=== PATIENT | female | born 1950 | race Caucasian/White ===

== ENCOUNTER → 2017-11-19 | Outpatient (REF) ==
[~2017-11-19] MED LIST: COLACE 100100 MG/CAP PO; MIRALAX238G PO; MOTRIN 400400 MG/TAB PO; MVI; SINEMET 25/101 UDTAB PO; TYLENOL 325MG325 MG PO; VITAMIN E200 I1 PO; VITAMIND3 5000 PO; ZOFRAN 4MG T4 MG/TAB PO
[2017-11-19 16:25] LABS: BASO % 0.3 % (0.0-2.0); EOS # 0.1 (0.0-0.7); EOS % 0.5 % (0-4.0); GRAN # 11.6 (1.4-6.5); GRAN % 84.4 % (42.2-75.2); HEMATOCRIT 37.9 % (37.0-47.0); HEMOGLOBIN 12.4 g/dl (12.5-16.0); LYMPH # 1.2 (1.2-3.4); LYMPH % 8.5 % (20.0-51.0); MEAN CELL VOLUME 88 fl (80.0-100.0); MEAN CORPUSCULAR HEMOGLOBIN 29 pg (27.0-31.0); MEAN CORPUSCULAR HGB CONC 33 g/dl (33.0-37.0); MEAN PLATELET VOLUME 11.6 fl (7.4-10.4); MONO # 0.8 (0.1-0.6); MONO % 5.9 % (1.7-9.3); PLATELET COUNT 237 K/mm3 (130-400); REDCELL DISTRIBUTION WIDTH-CV 14.2 % (11.5-14.5)
[2017-11-19 16:37] LABS: ALANINE AMINOTRANSFERASE 40 U/L (9-52); ALBUMIN 3.4 gm/dL (3.5-5.0); ALKALINE PHOSPHATASE 97 U/L (50-136); ANION GAP 8 mmol/L (7-16); AST,SGOT 42 U/L (15-37); BILIRUBIN,TOTAL 0.3 mg/dL (0.0-1.0); BLOOD UREA NITROGEN 9 mg/dL (7-17); CALCIUM 8.7 mg/dL (8.4-10.2); CARBON DIOXIDE 28 mmol/L (22-30); CHLORIDE 98 mmol/L (98-107); CREATININE, serum 0.59 mg/dL (0.52-1.25); GLUCOSE 114 mg/dL (74-106); POTASSIUM 3.3 mmol/L (3.4-5.0); SODIUM 134 mmol/L (137-145); TOTAL PROTEIN 6.6 gm/dL (6.4-8.2)
[2017-11-19 16:58] LABS: TROPONIN-I < 0.012 ng/mL (0.000-0.034)
== END ==
LOC: ZCOL.LAB 16:15
PROVIDERS: Internal Medicine
DX: K80.42 Calculus of bile duct with acute cholecystitis without obstruction (principal); R11.0 Nausea; R07.9 Chest pain, unspecified

== ENCOUNTER → 2017-11-21 | Outpatient (REF) | LOC: ZCOL.LAB 06:14 | DX: Z01.89 Encounter for other specified special examinations (principal) ==

== ENCOUNTER → 2018-04-10 | Outpatient (CLI) | payer MEDICARE, BC | LOC: MC.RAD 13:24 | DX: Z12.31 Encounter for screening mammogram for malignant neoplasm of breast (principal); Z13.820 Encounter for screening for osteoporosis ==

== ENCOUNTER → 2019-09-05 | Outpatient (CLI) | payer MEDICARE, BC | LOC: MC.RAD 07-26 11:45 | DX: Z12.31 Encounter for screening mammogram for malignant neoplasm of breast (principal) ==

== ENCOUNTER 2020-03-07 13:13 | Observation (INO) | payer MEDICARE, BC ==
[~2020-03-07] VITALS: Ht 170.2 cm; Wt 75.0 kg
[2020-03-07 15:24] LABS: HEMATOCRIT 39.5 % (37.0-47.0); HEMOGLOBIN 12.7 g/dl (12.5-16.0); MEAN CELL VOLUME 93 fl (80.0-100.0); MEAN CORPUSCULAR HEMOGLOBIN 30 pg (27.0-31.0); MEAN CORPUSCULAR HGB CONC 32 g/dl (33.0-37.0); MEAN PLATELET VOLUME 10.9 fl (7.4-10.4); PLATELET COUNT 221 K/mm3 (130-400); RED BLOOD COUNT 4.27 M/mm3 (4.10-5.30); REDCELL DISTRIBUTION WIDTH-CV 13.2 % (11.5-14.5)
[2020-03-07 15:38] LABS: ALKALINE PHOSPHATASE 72 U/L (50-136); ANION GAP 8 mmol/L (7-16); AST,SGOT 17 U/L (15-37); BILIRUBIN,TOTAL 0.3 mg/dL (0.0-1.0); BLOOD UREA NITROGEN 16 mg/dL (7-17); CALCIUM 8.2 mg/dL (8.4-10.2); CARBON DIOXIDE 25 mmol/L (22-30); CHLORIDE 107 mmol/L (98-107); CREATININE, serum 0.58 (0.52-1.25); GLUCOSE 120 mg/dL (74-106); POTASSIUM 3.9 mmol/L (3.4-5.0); SODIUM 139 mmol/L (137-145)
[2020-03-07 15:43] LABS: ALANINE AMINOTRANSFERASE < 4 U/L (4-34); C-REACTIVE PROTEIN < 0.5 mg/dL (0.0-0.9)
[2020-03-07 15:48] LABS: TROPONIN-I < 0.012 ng/mL (0.000-0.035)
[2020-03-07 16:18] LABS: COLLECTION METHOD CLEAN CATCH
[2020-03-07 16:37] LABS: MUCOUS Present /lpf; PH 5 (5-8); SQUAMOUS EPITHELIAL None Seen /hpf; URINE APPEARANCE Clear; URINE BACTERIA Rare /hpf; URINE BILIRUBIN Negative (NEGATIVE); URINE BLOOD Negative (NEGATIVE); URINE COLOR Yellow; URINE GLUCOSE Negative (NEGATIVE); URINE KETONE 2+ (NEGATIVE); URINE LEUKOCYTE ESTERASE Negative (NEGATIVE); URINE NITRATE Negative (NEGATIVE); URINE PROTEIN(semi-quant) Negative (NEGATIVE); URINE RBC 20-50 /hpf; URINE UROBILINOGEN Negative (NEGATIVE)
[2020-03-07 17:03] LABS: BAND 1 % (0-10); LYMPHOCYTE 6 % (20.0-51.0); NEUTROPHILS 93 % (42.0-75.2)
[2020-03-07 17:07] LABS: PLATELET ESTIMATE NORMAL (NORMAL)
[2020-03-07 18:20] VITALS: BP 133/68; PULSE 78; TEMP 98.8
[2020-03-07 19:38] VITALS: BP 126/63; PULSE 73; TEMP 98.2
--- NOTE | 2020-03-07 22:30 | NUR ---
Pt assessment completed, alert, oriented, roomair. Meds provided as per MAR, tolerated well. Pt complained of bed and matters not so comfortable, helped her settled down with multiple pillows. Call light on reach, no further need at this time.
[2020-03-07 23:00] VITALS: BP 121/63; PULSE 77; TEMP 98.3
[2020-03-08] VITALS (7 sets, daily range): BP systolic 126–149; BP diastolic 62–76; PULSE 68–81; TEMP 98.2–99.2
--- NOTE | 2020-03-08 07:41 | NUR ---
Pt had an uneventful night, slept on and off through out the night. Morning meds provided tolerated well. Handover provided to the day nurse.
--- NOTE | 2020-03-08 07:58 | NUR ---
BEDSIDE REPORT GIVEN. pt aox4. IV started by MATERIALS RECYCLER to LT FA. cipro infusing at this time thus flagyl late. pt with IV issues per operations supervisor 2nd shift
--- NOTE | 2020-03-08 11:01 | NUR ---
PT ROUNDED ON WITH DR MICHAEL. ORDER TO ADJUST SINEMET DOSE TO HOME DOSE OF 1.5 TABS X3 AND 1 TABX2 IN A DAY.
--- NOTE | 2020-03-08 14:48 | NUR ---
SW met with patient at her bedside. patient reports that she lives in [facility] by herself, with Shahriar Monroy (Bob) [phone] as care support and EMR. Patient also wished Lanre Ortiz as an EMR [phone]. Patient gave this SW a copy of point of contacts, and DPOa. SW made copies, and put a copy in patients file. Patient reports that she uses a walker with wheels, and that she is independent with ADL's. Patient reports that her PCP is Dr. Lainez with no upcoming appointments. PAtient reports that her medicatiosn coem from [facility], usually by mail, but she does have friends who will pick them up if needed. Patient did ask for assistance with locating an agency to provide meals occassionally. Patient reports that she was getting it from [employer] but she did not like the meals.
--- NOTE | 2020-03-08 20:30 | NUR ---
Initial shift assessment done- denies pain- states abd "tight", Up to bathroom with walker-steady on feet,no stools,voiding clear yellow urine. IV fluids of NS at 125cc/hr- getting IV flagyl and Cipro as ordered. On Contact /Droplet Isolation .
[2020-03-09 03:33] VITALS: BP 152/79; PULSE 71; TEMP 98.9
--- NOTE | 2020-03-09 04:48 | NUR ---
Has not slept much tonight- Up to bathroom every hour or so to void , IV fluids remain at 125cc/hr. Was given Tylenol x1 for slight right sided abd pain - No N/V,no stool tonight
[2020-03-09 07:07] LABS: BASO # 0.1 (0.0-0.2); BASO % 0.7 % (0.0-2.0); EOS # 0.1 (0.0-0.7); EOS % 1.8 % (0-4.0); GRAN # 4.1 (1.4-6.5); GRAN % 60.3 % (42.2-75.2); HEMOGLOBIN 10.8 g/dl (12.5-16.0); MEAN CELL VOLUME 92 fl (80.0-100.0); MEAN CORPUSCULAR HEMOGLOBIN 30 pg (27.0-31.0); MEAN CORPUSCULAR HGB CONC 32 g/dl (33.0-37.0); MEAN PLATELET VOLUME 11.8 fl (7.4-10.4); MONO # 0.6 (0.1-0.6); MONO % 8.1 % (1.7-9.3); PLATELET COUNT 212 K/mm3 (130-400); RED BLOOD COUNT 3.66 M/mm3 (4.10-5.30); REDCELL DISTRIBUTION WIDTH-CV 13.2 % (11.5-14.5)
[2020-03-09 07:15] LABS: HEMATOCRIT 33.7 % (37.0-47.0)
[2020-03-09 07:30] LABS: CALCIUM 8.5 mg/dL (8.4-10.2); CREATININE, serum 0.64 (0.52-1.25); POTASSIUM 3.5 mmol/L (3.4-5.0)
--- NOTE | 2020-03-09 07:38 | NUR ---
BEDSIDE SHIFT REPORT DONE. PT REPORTS MILD ABD PAIN. PASSING GAS BUT NO BM SINCE ADMIT. AMBULATED TO BATHROOM 1 ASSIST. VSS. REPORTS NOT MUCH SLEEP LAST NIGHT AND SOME ANXIETY ABOUT BEING A PUI. IVF IMFUSING WITH NO CONCERNS
[2020-03-09 07:42] VITALS: BP 149/75; PULSE 70; TEMP 98.6
[2020-03-09 08:00] VITALS: BP 139/64; PULSE 86; TEMP 98
[2020-03-09] MEDS ORDERED: FLAGYL500 MG PO (10:40)
[2020-03-09] MEDS ORDERED: CIPRO 500MG TA500 MG PO (10:40)
[2020-03-09] MEDS ORDERED: ZOFRAN ODT4 MG PO (10:41)
[2020-03-09 12:00] VITALS: BP 134/70; PULSE 70; TEMP 98.4
--- NOTE | 2020-03-09 14:06 | NUR ---
pt discharged to home @ 1400. picked up by friend. all questions answered. paperwork given to pt. IV dc'd no issues. denies pain on discharge. steady independent ambulation without walker on dc.
== END 2020-03-09 14:00 | disposition home or self-care (01) ==
LOC: COL.ER 13:13 → MEDICAL 16:52
PROVIDERS: Emergency Medicine; ADMIT Internal Medicine Pulmonary Disease
DX: K52.9 Noninfective gastroenteritis and colitis, unspecified (principal); G20 Parkinson's disease; Z20.828 Contact with and (suspected) exposure to other viral communicable diseases; Z88.2 Allergy status to sulfonamides; Z88.8 Allergy status to other drugs, medicaments and biological substances
CPT/HCPCS: G0378; J0744; J1650; J2405; J7030; Q9967

== ENCOUNTER 2020-10-27 23:46 | Inpatient (IN) | payer MEDICARE, BC ==
[~2020-10-27] VITALS: Ht 170.2 cm; Wt 68.2 kg
[~2020-10-27 23:46] MED LIST changes: +CIPRO 500MG TA500 MG PO; +FLAGYL500 MG PO; +ZOFRAN ODT4 MG PO
[2020-10-28 00:16] LABS: BASO # 0.1 (0.0-0.2); BASO % 0.4 % (0.0-2.0); EOS # 0.8 (0.0-0.7); EOS % 4.4 % (0-4.0); GRAN # 13.3 (1.4-6.5); GRAN % 76.7 % (42.2-75.2); HEMATOCRIT 32.4 % (37.0-47.0); HEMOGLOBIN 10.1 g/dl (12.5-16.0); LYMPH # 1.9 (1.2-3.4); LYMPH % 11.1 % (20.0-51.0); MEAN CELL VOLUME 93 fl (80.0-100.0); MEAN CORPUSCULAR HEMOGLOBIN 29 pg (27.0-31.0); MEAN CORPUSCULAR HGB CONC 31 g/dl (33.0-37.0); MEAN PLATELET VOLUME 9.6 fl (7.4-10.4); MONO # 1.1 (0.1-0.6); MONO % 6.5 % (1.7-9.3); PLATELET COUNT 491 K/mm3 (130-400); RED BLOOD COUNT 3.49 M/mm3 (4.10-5.30); REDCELL DISTRIBUTION WIDTH-CV 13.9 % (11.5-14.5)
[2020-10-28 00:21] LABS: INR 1.1 (0.8-3.0); PROTHROMBIN TIME 12.5 SECONDS (9.7-12.8)
[2020-10-28 00:29] LABS: ALANINE AMINOTRANSFERASE 6 U/L (4-34); ALBUMIN 3.3 gm/dL (3.5-5.0); ALKALINE PHOSPHATASE 156 U/L (50-136); ANION GAP 8 mmol/L (7-16); AST,SGOT 39 U/L (15-37); BILIRUBIN,TOTAL 0.1 mg/dL (0.0-1.0); BLOOD UREA NITROGEN 26 mg/dL (7-17); C-REACTIVE PROTEIN 6.8 mg/dL (0.0-0.9); CALCIUM 8.7 mg/dL (8.4-10.2); CARBON DIOXIDE 27 mmol/L (22-30); CHLORIDE 102 mmol/L (98-107); CREATININE, serum 1.04 (0.52-1.25); GLUCOSE 117 mg/dL (74-106); POTASSIUM 4.5 mmol/L (3.4-5.0); SODIUM 137 mmol/L (137-145); TOTAL PROTEIN 7.1 gm/dL (6.4-8.2)
[2020-10-28 00:38] LABS: TROPONIN-I < 0.012 ng/mL (0.000-0.035)
[2020-10-28 01:02] LABS: COLLECTION METHOD CLEAN CATCH
[2020-10-28 01:07] LABS: PH 7 (5-8); SQUAMOUS EPITHELIAL None Seen /hpf; URINE APPEARANCE Clear; URINE BACTERIA None Seen /hpf; URINE BILIRUBIN Negative (NEGATIVE); URINE BLOOD Negative (NEGATIVE); URINE COLOR Straw; URINE GLUCOSE Negative (NEGATIVE); URINE KETONE Negative (NEGATIVE); URINE LEUKOCYTE ESTERASE Negative (NEGATIVE); URINE NITRATE Negative (NEGATIVE); URINE PROTEIN(semi-quant) Negative (NEGATIVE); URINE RBC 0-2 /hpf; URINE UROBILINOGEN Negative (NEGATIVE)
[2020-10-28] MEDS ORDERED: TYLENOL 500MG500 MG PO (02:58)
[2020-10-28] MEDS ORDERED: SINEMET 25/101 UDTAB PO (05:01)
[2020-10-28] MEDS ORDERED: VITAMIND3 5000 PO (05:04)
--- NOTE | 2020-10-28 06:12 | NUR ---
Received patient from ED at 0445H. Patient is alert and oriented. She states she feels very weak and usually can go to the bathroom but right now she prefers to be in a diaper whenever she needs to void and have BM. With IV on left wrist started with NS at 60ml/hr. She is on room air. No tele. Call light within reach.
--- NOTE | 2020-10-28 07:00 | NUR ---
Report with CRISTEL Reveles. Pt resting in bed, awake and alert, asking about plug-ins and her chargers which we assist with. IVF's infusing without s/s of complications. Call light in reach. Bed alarm on.
[2020-10-28 07:20] LABS: BASO # 0.1 (0.0-0.2); BASO % 0.4 % (0.0-2.0); EOS # 0.5 (0.0-0.7); EOS % 3.3 % (0-4.0); GRAN # 13.1 (1.4-6.5); GRAN % 79.1 % (42.2-75.2); HEMOGLOBIN 10.3 g/dl (12.5-16.0); LYMPH # 1.8 (1.2-3.4); MEAN CELL VOLUME 91 fl (80.0-100.0); MEAN CORPUSCULAR HEMOGLOBIN 29 pg (27.0-31.0); MEAN CORPUSCULAR HGB CONC 32 g/dl (33.0-37.0); MEAN PLATELET VOLUME 10.1 fl (7.4-10.4); MONO # 0.9 (0.1-0.6); MONO % 5.7 % (1.7-9.3); PLATELET COUNT 498 K/mm3 (130-400); RED BLOOD COUNT 3.55 M/mm3 (4.10-5.30); REDCELL DISTRIBUTION WIDTH-CV 13.8 % (11.5-14.5)
[2020-10-28 07:26] LABS: HEMATOCRIT 32.3 % (37.0-47.0)
[2020-10-28 07:27] LABS: CALCIUM 8.5 mg/dL (8.4-10.2); CREATININE, serum 1.09 (0.52-1.25); POTASSIUM 4.2 mmol/L (3.4-5.0)
[2020-10-28 08:09] VITALS: BP 144/72; PULSE 91; TEMP 98.9
[2020-10-28 11:27] VITALS: BP 122/56; PULSE 79; TEMP 98.6
--- NOTE | 2020-10-28 13:17 | NUR ---
First visit from the epitaxial reactor operator. No needs right now.
--- NOTE | 2020-10-28 14:00 | NUR ---
Purewick remains in place per pt's preference d/t urinary urgency and weakness. No further needs reported. Call light in reach.
--- NOTE | 2020-10-28 15:25 | NUR ---
SW met with the patient to discuss discharge plan. The patient lives alone in [place]. She states that her mother lives at [facility]. She reports needing more assistance with ADLs lately and has a rolaider. The patient's PCP is Dr. Duong Mauro and she receives her medications by delivery from [facility]. She reports no difficulties obtaining her meds. The patient provided SW with a copy of her DPOA-HC. SW placed the document in the patient's chart. The patient's DPOA-HC is a fresh foods cake decorator, Shahriar Wong (ph#[phone], c.ph#[phone]), and the alternate is another fresh foods cake decorator, Lanre Ortiz (ph#[phone]). PT recommends SNF. SW discussed this with the patient. The patient reports that she has already been in contact with [facility] and would like to go there for rehab. She states that she has also been talking to them about transitioning to their long-term care after rehab. The patient does not have a second preference at this time. NEISHA contacted and faxed a referral to Lexie at [facility]. Awaiting screen. SW attempted to contact the patient's DPOA-HC, Shahriar. SW left him a voicemail. Discharge plan: Awaiting acceptance at [facility] SNF, will need a COVID test*
--- NOTE | 2020-10-28 16:21 | NUR ---
Plant Safety Engineer spoke with Lexie at [facility] who advised they can accept referral. Discharge Plan: [facility]
[2020-10-28 16:32] VITALS: BP 124/62; PULSE 83; TEMP 98.4
--- NOTE | 2020-10-28 18:42 | NUR ---
Report with CRISTEL Reveles. Pt resting in bed after eating, denies needs. Call light in reach.
--- NOTE | 2020-10-28 18:50 | NUR ---
Received report from Cristal. Patient awake in bed. She wants to have her medication at exactly 2000H.
[2020-10-28 19:32] VITALS: BP 124/56; PULSE 89; TEMP 98.5
--- NOTE | 2020-10-28 20:00 | NUR ---
Patient complains of left shoulder pain with pain score of 7/10. Tylenol given. Patient did oral care by herself with minimal assistance by VOLTAGE TESTER. Repositioned her in bed. Lungs are clear. Call light within reach.
[2020-10-28 23:56] VITALS: BP 130/68; PULSE 80; TEMP 97.6
[2020-10-29 04:14] VITALS: BP 133/64; PULSE 80; TEMP 97.8
--- NOTE | 2020-10-29 06:18 | NUR ---
Changed patient's purewick and diaper. Provided pericare.
--- NOTE | 2020-10-29 06:30 | NUR ---
PT LAYING IN BED AT THIS TIME. PT IS CURRENTLY USING A PUREWIK, HOWEVER TODAY WE WILL BE GETTING HER UP AND NOT USING ANY FORM OF INCONTINENCE PRODUCTS SINCE THE PATIENT IS CONTINENT. WE WILL BE ENCOURAGING MOVEMENT, AND NOT ALLOWING THE PATIENT TO LAY IN BED. THE PATIENT IS VERY ADIMANT THAT HER MEDICATIONS BE GIVEN AT THE TIME SPECIFIED, AND HAS EDUCATED THIS RN TO NOT CAUSE CONFUSION. WILL CONTINUE TO MONITOR. NO FURTHER CONCERNS AT THIS TIME.
[2020-10-29 06:46] LABS: BASO # 0.1 (0.0-0.2); BASO % 0.5 % (0.0-2.0); EOS % 6.8 % (0-4.0); GRAN # 10.2 (1.4-6.5); GRAN % 70.7 % (42.2-75.2); LYMPH # 2.1 (1.2-3.4); LYMPH % 14.3 % (20.0-51.0); MEAN CELL VOLUME 91 fl (80.0-100.0); MEAN CORPUSCULAR HGB CONC 32 g/dl (33.0-37.0); MEAN PLATELET VOLUME 9.9 fl (7.4-10.4); MONO % 6.9 % (1.7-9.3); PLATELET COUNT 435 K/mm3 (130-400); RED BLOOD COUNT 3.34 M/mm3 (4.10-5.30); REDCELL DISTRIBUTION WIDTH-CV 14.1 % (11.5-14.5)
[2020-10-29 06:58] LABS: HEMATOCRIT 30.5 % (37.0-47.0); HEMOGLOBIN 9.7 g/dl (12.5-16.0); MEAN CORPUSCULAR HEMOGLOBIN 29 pg (27.0-31.0)
[2020-10-29 07:09] LABS: CALCIUM 8.2 mg/dL (8.4-10.2); CREATININE, serum 1.04 (0.52-1.25); POTASSIUM 4.1 mmol/L (3.4-5.0)
[2020-10-29 07:36] VITALS: BP 139/63; PULSE 86; TEMP 98; TEMP 98.5
[2020-10-29 12:59] VITALS: BP 135/65; PULSE 92; TEMP 97.9
--- NOTE | 2020-10-29 13:04 | NUR ---
Program Director Group Work attended clinical rounds with the team. Hospitalist inquired if patient could discharge to [facility] without the three midnights. NEISHA faxed updates to Lexie who advised that they would be able to waive the three midnights. Patient will likely discharge tomorrow, 10/30 to [facility]. NEISHA met with patient who is agreeable to this plan. NEISHA also contacted patient's DPOA-HC, Shahriar to provide update on discharge plan. Shahriar advised that he is getting older, which is why Lanre was also added to the DPOA-HC paperwork so he can assist with anything patient may need.
--- NOTE | 2020-10-29 13:18 | NUR ---
Initial visit; Patient thanked Testing And Regulating Technician for offering prayer and God's blessings as well as having a nice visit.
[2020-10-29 15:31] VITALS: BP 116/59; PULSE 88; TEMP 97.7
--- NOTE | 2020-10-29 19:22 | NUR ---
Patient has had an uneventful day. She worked with PT/OT today and did will, with OT assisting her in the shower. Patient is looking forward to discharging to [facility] with hopes that she will be in a similar location as her mother. Patient has not had any c/o pain. She is very particular about receiving her medications on time, this student nurse has made sure that meds have been given in a timely manner to meet the patient's requests. Bedside report was given to Ca Su RN.
[2020-10-29 19:53] VITALS: BP 117/64; PULSE 87; TEMP 98
--- NOTE | 2020-10-29 20:00 | NUR ---
Assessment complete. Patient is alert and oriented with no complaints of pain or nausea at this time. No edema is noted, lungs are clear, all bowel sounds audible, heart sounds normal/regular. Abdomen is slightly rounded but soft and patient has no concerns of discomfort. Zosyn currently infusing into left hand IV. Call light in reach, will continue to monitor.
[2020-10-29 23:52] VITALS: BP 138/58; PULSE 85; TEMP 98.4
[2020-10-30 04:17] VITALS: BP 140/67; PULSE 80; TEMP 98.1
[2020-10-30 06:46] LABS: BASO # 0.1 (0.0-0.2); BASO % 0.4 % (0.0-2.0); EOS # 0.8 (0.0-0.7); GRAN # 13.1 (1.4-6.5); GRAN % 78.6 % (42.2-75.2); LYMPH # 1.7 (1.2-3.4); MEAN CELL VOLUME 93 fl (80.0-100.0); MEAN CORPUSCULAR HEMOGLOBIN 29 pg (27.0-31.0); MEAN CORPUSCULAR HGB CONC 31 g/dl (33.0-37.0); MEAN PLATELET VOLUME 10.2 fl (7.4-10.4); MONO # 0.9 (0.1-0.6); MONO % 5.4 % (1.7-9.3); PLATELET COUNT 452 K/mm3 (130-400); RED BLOOD COUNT 3.48 M/mm3 (4.10-5.30)
[2020-10-30 06:48] LABS: HEMATOCRIT 32.4 % (37.0-47.0)
[2020-10-30 07:04] LABS: CALCIUM 8.3 mg/dL (8.4-10.2); CREATININE, serum 1.07 (0.52-1.25); POTASSIUM 3.9 mmol/L (3.4-5.0)
--- NOTE | 2020-10-30 07:05 | NUR ---
Bedside report completed. Patient is currently resting in bed with no complaints at this time.
[2020-10-30 08:05] VITALS: BP 146/65; PULSE 76; TEMP 97.7
[2020-10-30] MEDS ORDERED: AMOXICILLIN 8751 TAB PO (09:51)
[2020-10-30 10:24] VITALS: BP 146/65; PULSE 76; TEMP 97.7
[2020-10-30] MEDS ORDERED: PROBIOTIC ACID1 EAC3 PO (10:54)
--- NOTE | 2020-10-30 11:41 | NUR ---
Patient has been transferred to [facility] via [facility] transportation, by Kolton Alejandra. Patient had all of her belongings with her when discharging. This student nurse is currently waiting to give report over the phone to a nurse at [facility] who will be taking over the patient's care. Before discharging the patient was given her first dose of augmentin and her scheduled sinemet.
--- NOTE | 2020-10-30 14:24 | NUR ---
Cooler Supervisor attended clinical rounds with the team and patient is ready for discharge today. NEISHA faxed clinical updates to Lexie at [facility] who advised they can accept and waive the three midnights. NEISHA faxed emergency admit orders to Lexie at [facility] and set transport time for 1130. NEISHA met with patient to provide transport time. Patient is agreeable to this. Discharge Plan: [facility] today.
== END 2020-10-30 11:50 | DRG 872 ==
LOC: COL.ER 23:46 → MEDICAL 10-28 02:29
PROVIDERS: Emergency Medicine; Physician Assistant; Student in an Organized Health Care Education/Training Program; ADMIT Hospitalist
DX: A41.9 Sepsis, unspecified organism (principal); K52.9 Noninfective gastroenteritis and colitis, unspecified; G20 Parkinson's disease; R53.81 Other malaise; G62.9 Polyneuropathy, unspecified; M51.46 Schmorl's nodes, lumbar region; N28.1 Cyst of kidney, acquired; Z88.2 Allergy status to sulfonamides; Z88.6 Allergy status to analgesic agent
CPT/HCPCS: 99222-AI; 99232-AI; 99239; J1650; J2405; J2543; J7030; Q9967

== ENCOUNTER → 2021-03-08 | Outpatient (CLI) | payer MEDICARE, BC ==
[~2021-03-08] MED LIST changes: +AMOXICILLIN 8751 TAB PO; +PROBIOTIC ACID1 EAC3 PO; +TYLENOL 500MG500 MG PO
[2021-03-08 13:34] LABS: COLLECTION METHOD CLEAN CATCH
[2021-03-08 13:42] LABS: MUCOUS Present /lpf; PH 5 (5-8); SQUAMOUS EPITHELIAL 0-2 /hpf; URINE APPEARANCE Clear; URINE BACTERIA Rare /hpf; URINE BILIRUBIN Positive (NEGATIVE); URINE BLOOD Negative (NEGATIVE); URINE COLOR Yellow; URINE GLUCOSE Negative (NEGATIVE); URINE KETONE Trace (NEGATIVE); URINE LEUKOCYTE ESTERASE Negative (NEGATIVE); URINE NITRATE Negative (NEGATIVE); URINE PROTEIN(semi-quant) Negative (NEGATIVE); URINE RBC 0-2 /hpf; URINE UROBILINOGEN Negative (NEGATIVE); URINE WBC 0-2 /hpf
== END ==
LOC: ZCOL.LAB 12:55
PROVIDERS: Internal Medicine
DX: N39.0 Urinary tract infection, site not specified (principal)

== ENCOUNTER → 2021-04-28 | Outpatient (CLI) | payer MEDICARE, BC ==
[2021-04-28 20:18] LABS: COLLECTION METHOD CLEAN CATCH
[2021-04-28 20:34] LABS: MUCOUS Present /lpf; PH 5 (5-8); SQUAMOUS EPITHELIAL 0-2 /hpf; URINE APPEARANCE Clear; URINE BACTERIA None Seen /hpf; URINE BILIRUBIN Negative (NEGATIVE); URINE BLOOD Negative (NEGATIVE); URINE COLOR Straw; URINE GLUCOSE Negative (NEGATIVE); URINE KETONE Trace (NEGATIVE); URINE LEUKOCYTE ESTERASE Negative (NEGATIVE); URINE NITRATE Negative (NEGATIVE); URINE PROTEIN(semi-quant) Negative (NEGATIVE); URINE RBC 0-2 /hpf; URINE UROBILINOGEN Negative (NEGATIVE)
== END ==
LOC: ZCOL.LAB 20:14
PROVIDERS: Family Medicine
DX: N39.0 Urinary tract infection, site not specified (principal)

== ENCOUNTER 2023-07-21 08:07 | Inpatient (IN) | payer MEDICARE, BC ==
[2023-07-21] VITALS (11 sets, daily range): BP systolic 113–157; BP diastolic 65–83; PULSE 69–85; TEMP 97.9–99.5
[~2023-07-21] VITALS: Ht 170.2 cm; Wt 83.1 kg
[~2023-07-21 08:07] MED LIST changes: +ASPI325T6 PO; +CALCIUM 600600 MG PO; +DULCOLAX S10 MG/SUPP RC; +DULCOLAX STOOL100 MG PO; +DUO-KAPS1 CAP PO; +FLONASEALLERGY NS; +IMODIUM 2MG CAPS2 MG PO; +MELATONIN5 M1 SL; +MILK OF MA400 MG/52 PO; +MIRALAX PA17 GM/Dose PO; +MUCINEX 60600 MG/TA1 PO; +MYLANTA 150 ML150 M1 PO; +MYLANTA COAT-C355 ML PO; +ROXICODONE 55 MG/TAB PO; +VESICARE 5MG5 MG PO; +ZOLOFT 50MG50 MG PO
[2023-07-21 10:10] LABS: ALANINE AMINOTRANSFERASE 6 U/L (0-55); ALBUMIN 3.6 gm/dL (3.4-4.8); ALKALINE PHOSPHATASE 111 U/L (40-150); ANION GAP 11 mmol/L (7-16); AST,SGOT 12 U/L (5-34); BILIRUBIN,TOTAL 0.4 mg/dL (0.2-1.2); BLOOD UREA NITROGEN 27 mg/dL (10-20); CALCIUM 9.4 mg/dL (8.4-10.2); CARBON DIOXIDE 23 mmol/L (23-31); CHLORIDE 106 mmol/L (98-107); CREATININE, serum 0.74 mg/dL (0.57-1.11); GLUCOSE 139 mg/dL (70-99); POTASSIUM 4.2 mmol/L (3.5-4.5); SODIUM 140 mmol/L (136-145); TOTAL PROTEIN 7.1 gm/dL (6.2-8.1)
[2023-07-21 10:30] LABS: TSH w REFLEX 1.856 uIU/mL (0.350-4.940)
[2023-07-21] MEDS ORDERED: Acetaminophen 325 MG TAB PO ONE (10:30)
[2023-07-21 10:32] LABS: TROPONIN-I < 0.010 ng/mL (0.00-0.033)
[2023-07-21 11:04] LABS: PH 5.5 (5.0-8.5); URINE APPEARANCE Turbid (CLEAR/HAZY); URINE BACTERIA Many /hpf (NONE SEEN); URINE BLOOD Negative (NEGATIVE); URINE COLOR Yellow (YELLOW); URINE GLUCOSE Negative (NEGATIVE); URINE KETONE TRACE (NEGATIVE); URINE NITRATE Positive (NEGATIVE); URINE PROTEIN(semi-quant) Negative (NEGATIVE); URINE UROBILINOGEN 0.2 E.U/dL (0.2-1.0)
[2023-07-21 11:33] LABS: COLLECTION METHOD CATHETER
[2023-07-21] MEDS ORDERED: NS 1,000 ML IV ONE (11:53)
[2023-07-21] MEDS ORDERED: cefTRIAXone 1 G in Water For Injection,Sterile 10 ML IV ONE (12:15)
[2023-07-21 13:02] LABS: BASO % 0.4 % (0.0-2.0); GRAN # 6.9 K/mm3 (1.4-6.5); HEMATOCRIT 35.7 % (37.0-47.0); HEMOGLOBIN 11.8 g/dl (12.5-16.0); LYMPH # 0.7 K/mm3 (1.2-3.4); LYMPH % 8.5 % (20.0-51.0); MEAN CELL VOLUME 92 fl (80.0-100.0); MEAN CORPUSCULAR HEMOGLOBIN 31 pg (27-31); MEAN CORPUSCULAR HGB CONC 33 g/dl (33.0-37.0); MEAN PLATELET VOLUME 11.9 fl (7.4-10.4); MONO # 0.4 K/mm3 (0.1-0.6); MONO % 4.8 % (1.7-9.3); PLATELET COUNT 315 K/mm3 (130-400); RED BLOOD COUNT 3.87 M/mm3 (4.10-5.30); REDCELL DISTRIBUTION WIDTH-CV 14.5 % (11.5-14.5)
[2023-07-21] MEDS ORDERED: SINEMET 25/101 UDTAB PO ×5 (13:27→13:31)
[2023-07-21] MEDS ORDERED: COLACE 100100 MG/CAP PO (13:32)
[2023-07-21] MEDS ORDERED: LASIX 20MG TABL20 MG PO (13:33)
[2023-07-21] MEDS ORDERED: FLONASE NASAL S16 GM NS (13:33)
[2023-07-21] MEDS ORDERED: VESICARE 5MG5 MG PO (13:35)
[2023-07-21] MEDS ORDERED: ASPIRIN 32325 MG/TAB PO (13:37)
[2023-07-21] MEDS ORDERED: DAILY PROBIOTI250 MG PO (13:39)
[2023-07-21] MEDS ORDERED: TYLENOL 325MG325 MG PO (13:40)
[2023-07-21] MEDS ORDERED: MUCINEX 60600 MG/TA1 PO (13:41)
[2023-07-21] MEDS ORDERED: ROXICODONE 55 MG/TAB PO (13:44)
[2023-07-21] MEDS ORDERED: Morphine 4 MG/ML VIAL IV PRN (14:45)
--- NOTE | 2023-07-21 14:45 | NUR ---
PATIENT ADMITED INTO ROOM 344 FROM ER WITH LEFT HIP DISLOCATION. PATIENT WAS A [facility] POST-OP FROM LEFT HIP HEMIARTHROPLASTY ON 06/24, PER REPORT. PATIENT REPORTS SOME DISCOMFORT IN LLE WITH MOVEMENT BUT REPORTS NO PAIN AT REST. A&O X2, NOT A GOOD HISTORIAN AND REPEATS HERSELF. NOTED LOW GRADE TEMP OF 99.5 ALL OTHER VSS. NPO. LEFT AC IV TO INT. CASAS TO DD WITH SMALL AMOUNTS OF YELLOW URINE NOTED. HEAD TO TOE ASSESSENT COMPLETE. DNR STATUS. ORIENTED TO ROOM. CALL LIGHT IN REACH. BED ALARM ON. NO FAMILY/FRIEND AT BEDSIDE.
[2023-07-21] MEDS ORDERED: Acetaminophen 500 MG TAB PO SCH ×2 (15:00→20:22)
[2023-07-21] MEDS ORDERED: oxyCODONE 5 MG TAB PO PRN ×3 (15:00→19:30)
[2023-07-21] MEDS ORDERED: Polyethylene Glycol 3350 17 GM PDS PO PRN (15:30)
--- NOTE | 2023-07-21 16:05 | NUR ---
AT BEDSIDE. SEE PROGRESS NOTES.
[2023-07-21] MEDS ORDERED: NS 10 ML IV ONE (16:07)
[2023-07-21] MEDS ORDERED: Ondansetron 4 MG/2 ML VIAL ONE (16:07)
[2023-07-21] MEDS ORDERED: dexAMETHasone 10 MG/ML VIAL ONE (16:07)
[2023-07-21] MEDS ORDERED: Ondansetron 4 MG/2 ML VIAL IV PRN ×2 (16:30→19:30)
[2023-07-21] MEDS ORDERED: fentaNYL 50 MCG/ML 2 ML VIAL IV PRN ×2 (16:30)
[2023-07-21] MEDS ORDERED: hydrALAZINE 20 MG/ML 1 ML VIAL IV PRN (16:30)
[2023-07-21] MEDS ORDERED: LR 1,000 ML IV SCH (16:30)
[2023-07-21] MEDS ORDERED: HYDROmorphone 2 MG/1 ML VIAL IV PRN (16:30)
--- NOTE | 2023-07-21 16:45 | NUR ---
PATIENT GOING DOWN TO SURGERY VIA BED. CONSENT ON CHART. PRE-OP FLUIDS INFUSING VIA GRAVITY. PATIENT HAS BEEN NPO SINCE LAST NIGHT. GAVE PARKINSON'S MED WITH A FEW SIPS PER ANESTHESIA. PATIENT GOING DOWN TO OR VIA BED, FRIEND NOW AT BEDSIDE. PATIENT OFF FLOOR.
[2023-07-21] MEDS ORDERED: Phenylephrine 10 MG/ML VIAL ONE (17:15)
[2023-07-21] MEDS ORDERED: NS 100 ML IV ONE (17:15)
[2023-07-21] MEDS ORDERED: Tranexamic Acid 1,000 MG/10 ML VIAL ONE (17:26)
[2023-07-21] MEDS ORDERED: ePHEDrine 50 MG/ML VIAL ONE (17:39)
[2023-07-21] MEDS ORDERED: Naloxone 0.4 MG/ML VIAL IV PRN (19:30)
[2023-07-21] MEDS ORDERED: Magnes Hydrox (MOM) 80 MG/ML 30 ML CUP PO PRN (19:30)
[2023-07-21] MEDS ORDERED: HYDROmorphone 0.5 MG/0.5 ML SYRINGE IV PRN (19:30)
[2023-07-21] MEDS ORDERED: NS 1,000 ML IV SCH (19:30)
[2023-07-21] MEDS ORDERED: Aspirin 325 MG TAB PO SCH (21:00)
[2023-07-21] MEDS ORDERED: Docusate Sodium 100 MG CAP PO SCH (21:00)
[2023-07-21] MEDS ORDERED: SACCHAROMYCES BOULARDII 250 MG PO SCH (21:00)
[2023-07-21] MEDS ORDERED: Sennosides/Docusate 8.6-50 MG TAB PO SCH (21:00)
--- NOTE | 2023-07-21 21:32 | NUR ---
Patient arrived to the floor from PACU at 1999, with LR infusing via gravity 550ml remaining on her left hand, INT infusing well on LAC, with pillows in between her legs, aquacell dressing to left hip CDI, CMS intact, denies pain, denies nausea, offered food but refused, patient also refused to turn at this time, reminded the relevance of turning her, states "will do that tomorrow morning",. SCD's on, ice pack to left hip on, denies further needs, call light and personal items within reach, will continue to monitor.
[2023-07-21] MEDS ORDERED: ceFAZolin 2 G in Water For Injection,Sterile 20 ML IV SCH (23:22)
--- NOTE | 2023-07-21 23:56 | NUR ---
Patient still refused to turn, denies pain at this time, COOKER SULFITE intact, VSS.
[2023-07-22] VITALS (11 sets, daily range): BP systolic 110–152; BP diastolic 63–72; PULSE 72–82; TEMP 98.2–98.9
--- NOTE | 2023-07-22 04:11 | NUR ---
Patient agreed to be repositioned on her left side at this time, denies pain or discomfort, refused her scheduled tylenol.
--- NOTE | 2023-07-22 05:53 | NUR ---
Repositioned patient to her left side, drained 400ml from the urine bag.
[2023-07-22 06:55] LABS: BASO % 0.2 % (0.0-2.0); GRAN # 5.2 K/mm3 (1.4-6.5); GRAN % 79.2 % (42.2-75.2); LYMPH # 0.8 K/mm3 (1.2-3.4); LYMPH % 11.4 % (20.0-51.0); MEAN CELL VOLUME 93 fl (80.0-100.0); MEAN CORPUSCULAR HGB CONC 32 g/dl (33.0-37.0); MEAN PLATELET VOLUME 11.7 fl (7.4-10.4); MONO # 0.6 K/mm3 (0.1-0.6); MONO % 8.7 % (1.7-9.3); PLATELET COUNT 250 K/mm3 (130-400); RED BLOOD COUNT 3.14 M/mm3 (4.10-5.30); REDCELL DISTRIBUTION WIDTH-CV 14.5 % (11.5-14.5)
[2023-07-22 07:02] LABS: HEMATOCRIT 29.2 % (37.0-47.0); HEMOGLOBIN 9.4 g/dl (12.5-16.0); MEAN CORPUSCULAR HEMOGLOBIN 30 pg (27-31)
[2023-07-22 07:46] LABS: CALCIUM 8.6 mg/dL (8.4-10.2); CREATININE, serum 0.68 mg/dL (0.57-1.11); POTASSIUM 4.5 mmol/L (3.5-4.5)
--- NOTE | 2023-07-22 08:29 | NUR ---
PT SITTING UP IN BED TAKING AM MEDS WHOLE WITH SIPS OF WATER. DRESSINGS CDI, CASAS CATHETER TO DD WITH CLEAR YELLOW URINE IN COLLECTION BAG. PAIN CONTROLLED WITH PO MEDS. PT AND OT ORDERS FOR PT. PLAN ON DISCHARGE TO [facility]. DRESSING TO LEFT HIP CDI.
[2023-07-22] MEDS ORDERED: Cholecalciferol (Vit D3) 5000 Units Capsule PO SCH (09:00)
[2023-07-22] MEDS ORDERED: Furosemide 20 MG TAB PO SCH (09:00)
[2023-07-22] MEDS ORDERED: Fluticasone Nasal 50 MCG/Spray 16 GM BOTTLE NS SCH (09:00)
[2023-07-22] MEDS ORDERED: Solifenacin 5 MG **** subs to Oxybutynin XL 5 MG PO SCH (09:00)
[2023-07-22] MEDS ORDERED: Sertraline 50 MG TAB PO SCH (09:00)
--- NOTE | 2023-07-22 11:52 | NUR ---
Data: Patient declined First Assistant visit offered to her during First Assistant rounds. Patient had a visitor. Assessment: Patient stated she is Jehovah Witness. Plan of Care: First Assistant asked CRISTEL Perea to instruct how to change the buddhism preference of Patient from no preference to Jehovah Witness. CRISTEL Perea made the changes. First Assistant later realized that those options are not available to First Assistant in the [facility] system therefore an RN will always be needed to change buddhism preferences.
[2023-07-22] MEDS ORDERED: cefTRIAXone 1 G in Water For Injection,Sterile 10 ML IV SCH (12:00)
--- NOTE | 2023-07-22 15:38 | NUR ---
Cares resumed from Eliazar. Patient awake and alert resting in bed. Rios cares provided. Patient repositioned to her right side. Left hip aquacell dressing CDI. Scds BLE. IV to INT. Patient feeling better after a episode of nausea, zofran given. Questions answered for YONI De Dios. High fall risk protocol followed.
--- NOTE | 2023-07-22 17:34 | NUR ---
Patient resting in bed. made aware of patient emesis this afternoon, no new orders at this time. Patient provided with sprite and crackers. Assisted with oral cares. Will monitor
--- NOTE | 2023-07-22 18:53 | NUR ---
Patient 2 assisted to the bedside commode with walker & gaitbelt. Not able to have BM. Heavy assist she was able to stand steady, very minimal steps. Bedside report to Mireille.
--- NOTE | 2023-07-22 19:37 | NUR ---
Patient admitted for total hip revision, still with IV infusing well on LAC and LH, SCD's on, refused to wears her TEDs, aquacel dressing CDI, iain to DD, reports her nausea is better, denies further needs, call light and personal items within reach, will continue to monitor.
--- NOTE | 2023-07-22 21:08 | NUR ---
Patient had a small amount of yellowish emesis, IV zofran given at this time.
[2023-07-23] VITALS (12 sets, daily range): BP systolic 117–144; BP diastolic 63–78; PULSE 72–81; TEMP 98–98.8
--- NOTE | 2023-07-23 00:19 | NUR ---
Patient had an emesis at this time, called Graciela the STEEPING PRESS TENDER and received an order for compazine.
--- NOTE | 2023-07-23 04:40 | NUR ---
Repositioned patient to her left side, refused her scheduled tylenol, ICE pack on to left hip.
[2023-07-23 07:47] LABS: MEAN CELL VOLUME 94 fl (80.0-100.0); MEAN CORPUSCULAR HGB CONC 32 g/dl (33.0-37.0); MEAN PLATELET VOLUME 11.8 fl (7.4-10.4); PLATELET COUNT 216 K/mm3 (130-400); RED BLOOD COUNT 2.85 M/mm3 (4.10-5.30); REDCELL DISTRIBUTION WIDTH-CV 14.6 % (11.5-14.5)
[2023-07-23 07:52] LABS: HEMATOCRIT 26.8 % (37.0-47.0); HEMOGLOBIN 8.5 g/dl (12.5-16.0); MEAN CORPUSCULAR HEMOGLOBIN 30 pg (27-31)
[2023-07-23 08:05] LABS: CALCIUM 8.6 mg/dL (8.4-10.2); CREATININE, serum 0.65 mg/dL (0.57-1.11); POTASSIUM 3.7 mmol/L (3.5-4.5)
--- NOTE | 2023-07-23 09:15 | NUR ---
PT SITTING UP IN BED EATING BREAKFAST. DR. CATES IN TO ROUND ON PT. EXPLAINED THE DANGERS OF REFUSING THERAPY. PT WAS NOT AGREEING WITH PHYSICIAN, HE EVENTUALLY WAS ABLE TO CONVINCE PT THAT SHE NEEDS TO GET UP TO RECLINER WITH THEARPY.
[2023-07-23] MEDS ORDERED: guaiFENesin ER 600 MG **** subs to guaiFENesin 200 MG PO SCH (09:22)
[2023-07-23] MEDS ORDERED: Polyethylene Glycol 3350 17 GM PDS PO ONE (09:30)
--- NOTE | 2023-07-23 10:25 | NUR ---
SW met with patient to complete intake. Patient provides she lives in [facility] at [facility]. Patient provides her DPOA/HC Lanre Coffey [phone] and Shahriar Wong [phone]. Present during intake Deborah, patient's son's Deborah who provided that she will be obtaining patient's clothes from [facility]. PCP is Dr. France, and pharmacy is [facility], and patient utilizes a walker for mobility. Patient provides she plans to return to [facility] post dc. SW will continue to follow. DC plan: return to [facility] LTC vs Skilled
[2023-07-23] MEDS ORDERED: Nitrofurantoin (Mono/Macro) 100 MG CAP PO SCH (11:07)
[2023-07-23] MEDS ORDERED: guaiFENesin 200 MG TAB PO SCH (14:00)
--- NOTE | 2023-07-23 18:34 | NUR ---
pt refused to get up to recliner this shift. Rios catheter discontinued per protocol. pt tolerated well.
--- NOTE | 2023-07-23 19:46 | NUR ---
Patient watching football game on TV with her friend, tooks pills fine, denies nausea, dressing to left hip CDI, still with IV infusing well on left hand, patient wet the bed during shift change, techs changed the pad and provided pericare, denies further needs, call light and personal items within reach, will continue to monitor.
[2023-07-24] VITALS: BP 117/74; PULSE 71; TEMP 98.6
[2023-07-24 00:41] VITALS: BP_SYST 117
--- NOTE | 2023-07-24 01:17 | NUR ---
Repositioned patient to her left side then few minutes after she states "I'm peeing". Patient wet the bed already, this nurse reminded this patient to give the staff a call whenever she needs to void, discussed also the importance of getting up in bed, pericares provided, changed pad.
[2023-07-24 03:45] VITALS: BP 134/77; PULSE 73; TEMP 98.2
[2023-07-24 03:54] VITALS: BP_SYST 134
--- NOTE | 2023-07-24 04:51 | NUR ---
Patient up to the [facility], took 2-3 staff to assist her, she voided and had a small BM.
[2023-07-24 07:50] VITALS: BP 155/77; PULSE 72; TEMP 98.1
[2023-07-24 08:25] LABS: MEAN CELL VOLUME 93 fl (80.0-100.0); MEAN CORPUSCULAR HGB CONC 33 g/dl (33.0-37.0); MEAN PLATELET VOLUME 11.2 fl (7.4-10.4); PLATELET COUNT 223 K/mm3 (130-400); RED BLOOD COUNT 3.05 M/mm3 (4.10-5.30); REDCELL DISTRIBUTION WIDTH-CV 14.5 % (11.5-14.5)
[2023-07-24] MEDS ORDERED: ASPIRIN 32325 MG/TAB PO (08:27)
[2023-07-24] MEDS ORDERED: MACROBID 1100 MG/CAP PO (08:27)
[2023-07-24 08:29] LABS: HEMATOCRIT 28.2 % (37.0-47.0); HEMOGLOBIN 9.2 g/dl (12.5-16.0); MEAN CORPUSCULAR HEMOGLOBIN 30 pg (27-31)
[2023-07-24] MEDS ORDERED: ROXICODONE 55 MG/TAB PO (08:29)
[2023-07-24 10:18] VITALS: BP_SYST 155
--- NOTE | 2023-07-24 10:26 | NUR ---
Patient sitting up in chair. Doctors have rounded, plan of care reviewed. Patient to [facility], social work assisting. Patient Left hip aquacell dressing intact. Patient assisted with hygiene and Dressed for discharge. Patient INT DC. We reviewed H&H level. Patient did well with breakfast & does not eant lunch prior to leaving offered to ordered. Deneis nausea. Patient reports being uncomfortable in chair, but not wanting to take medications.
--- NOTE | 2023-07-24 11:11 | NUR ---
Patient siting up in chair. Sinment and tylenol prior to DC. [facility] Will wait for transport
--- NOTE | 2023-07-24 11:17 | NUR ---
Chrome Polisher was notified that patient can be discharged back to [facility] today. NEISHA contacted Lexie at [facility] and faxed referral. Lexie advised they can accept patient skilled today. Transport time set for 1130. NEISHA contacted patient's DPOA-HC, Lanre and notified him of discharge time. NEISHA faxed discharge orders to Lexie. Discharge Plan; [facility]
--- NOTE | 2023-07-24 11:34 | NUR ---
Patient provided with incontince care prior to discharge. Transportation services to take her to [facility]
== END 2023-07-24 11:35 | DRG 470 ==
LOC: COL.ER 08:07 → SURG 12:19
PROVIDERS: Emergency Medicine; Orthopaedic Surgery; ADMIT Internal Medicine
PROC: 0SSBXZZ Reposition Left Hip Joint, External Approach (ICD-10-PCS; 2023-07-21)
PROC: 0SRB0J9 Replacement of Left Hip Joint with Synthetic Substitute, Cemented, Open Approach (ICD-10-PCS; principal; 2023-07-21 17:30)
DX: T84.021A Dislocation of internal left hip prosthesis, initial encounter (principal); N39.0 Urinary tract infection, site not specified; G20.A1 Parkinson's disease without dyskinesia, without mention of fluctuations; B96.20 Unspecified Escherichia coli [E. coli] as the cause of diseases classified elsewhere; R53.81 Other malaise; Z66 Do not resuscitate; R11.0 Nausea; Z79.82 Long term (current) use of aspirin; Z79.891 Long term (current) use of opiate analgesic; Z96.642 Presence of left artificial hip joint; Z88.2 Allergy status to sulfonamides; Z88.8 Allergy status to other drugs, medicaments and biological substances
CPT/HCPCS: A4314; A6197; A9284; C1713; C1776; J0690; J0696; J0780; J1100; J2371; J2405; J2704; J7030; L1830

== ENCOUNTER → 2024-02-20 | Outpatient (CLI) | payer MEDICARE, BC ==
[~2024-02-20] MED LIST changes: +ASPIRIN 32325 MG/TAB PO; +DAILY PROBIOTI250 MG PO; +FLONASE NASAL S16 GM NS; +LASIX 20MG TABL20 MG PO; +MACROBID 1100 MG/CAP PO
== END ==
LOC: MC.RAD 09:12
DX: Z12.31 Encounter for screening mammogram for malignant neoplasm of breast (principal)